=== PATIENT | female | born 1965 | race Caucasian/White ===

== ENCOUNTER 2018-06-24 08:57 | Outpatient (CLI) | payer OTHER ==
--- NOTE | 2018-06-24 11:04 | RAD ---
THREE VIEWS LEFT ANKLE: Date: 06-24-18 History: Left foot pain after walking 15 miles per day for several days. FINDINGS: There is an anchor screw overlying the cuboid bone. There is irregularity involving the base of the l eft fifth metatarsal related to prior injury. There is slight irregularity involving the plantar aspe ct of the posterior process of the talus. This may be developmental in origin. There is no acute frac ture seen. The ankle mortise is congruent. No dislocation is identified. IMPRESSION: No acute osseous abnormality of the left ankle. POS: [facility]
--- NOTE | 2018-06-24 11:09 | RAD ---
LEFT FOOT THREE VIEWS: INDICATIONS: Left foot pain with walking. COMPARISON: None. FINDINGS: Lisfranc alignment is preserved. There is a suture anchor within the lateral aspect of the cuboid, w hich may be related to prior tenodesis. No definite acute fracture is evident. Enthesopathic change is seen off the calcaneus and the base of the fifth metatarsal. There is mild scattered osteoarthro sis. IMPRESSION: No acute osseous abnormality. POS: [facility]
== END 2018-06-24 08:58 | disposition home or self-care (01) ==
LOC: SCSRAD 08:57
PROVIDERS: ATTEND Family Medicine
DX: M79.672 Pain in left foot (principal)

== ENCOUNTER 2019-04-26 11:42 | Outpatient (CLI) | payer OTHER ==
--- NOTE | 2019-04-26 13:47 | MMO ---
Bilateral MAMMO Bilat Screen [facility]. CLINICAL HISTORY: Patient is 53 years old and is seen for screening. The patient has the following family history of breast cancer: aunt, malignant (generic). The patient has no personal history of cancer. VIEWS: The views performed were: bilateral craniocaudal and bilateral mediolateral oblique. FILMS COMPARED: The present examination has been compared to prior imaging studies performed at [facility] on 06/14/2015 and 05/10/2017. This study has been interpreted with the assistance of computer-aided detection. MAMMOGRAM FINDINGS: There are scattered fibroglandular densities. There are no suspicious masses, suspicious calcifications, or new areas of architectural distortion. IMPRESSION: THERE IS NO MAMMOGRAPHIC EVIDENCE OF MALIGNANCY. A ROUTINE FOLLOW-UP MAMMOGRAM IN 1 YEAR IS RECOMMENDED. ACR BI-RADS Category 1 - Negative MAMMOGRAPHY NOTE: 1. A negative mammogram report should not delay a biopsy if a dominant of clinically suspicious mass is present. 2. Approximately 10% to 15% of breast cancers are not detected by mammography. 3. Adenosis and dense breasts may obscure an underlying neoplasm.
== END 2019-04-26 11:43 | disposition home or self-care (01) ==
LOC: SCSMAMMO 11:42
PROVIDERS: ATTEND Family Medicine
DX: Z12.31 Encounter for screening mammogram for malignant neoplasm of breast (principal); Z80.3 Family history of malignant neoplasm of breast
CPT/HCPCS: 77067

== ENCOUNTER 2023-07-28 09:01 | Outpatient (CLI) | payer BC | END 2023-07-28 09:02 | disposition home or self-care (01) | LOC: LABBT 09:01 | PROVIDERS: ATTEND Orthopaedic Surgery | DX: Z01.818 Encounter for other preprocedural examination (principal); M17.11 Unilateral primary osteoarthritis, right knee | CPT/HCPCS: 71046; 93005; 93010 ==

== ENCOUNTER 2023-08-02 05:39 | Observation (INO) | payer BC ==
[2023-07-28 09:30] VITALS: BMI 28.8
[2023-07-28 10:25] LABS: #Basophils 0.1 10x3/uL (0.0-0.2); #Eosinphils 0.1 10x3/uL (0.0-0.5); #Monocytes 0.5 10x3/uL (0.0-1.1); #Neutrophils 3.7 10x3/uL (1.5-8.4); %Basophils 0.8 % (0.0-2.0); %Lymphocytes 28.9 % (18.0-47.0); %Monocytes 7.8 % (0.0-10.0); %Neutrophils 60.2 % (40.0-75.0); Hematocrit 38.8 % (34.9-44.5); Hemoglobin 12.9 g/dL (12.0-15.5); Mean Corpuscular HGB CONC 33.2 g/dL (32.0-36.0); Mean Corpuscular Hemoglobin 30.6 pg (27.0-33.0); Mean Corpuscular Volume 92.2 fl (81.6-98.3); Mean Platelet Volume 10.1 fl (7.4-10.4); Platelet Count 194 10x3/uL (150-450); RBC Distribution Width 12.7 % (11.5-14.5); Red Blood Cell (RBC) Count 4.21 10x6/uL (3.90-5.03); White Blood Cell (WBC) Count 6.1 10x3/uL (3.5-10.5)
[2023-07-28 10:39] LABS: Prothrombin Time 10.3 sec (9.5-12.1)
[2023-07-28 11:02] LABS: Anion Gap 12 mmol/L (10-20); BUN (Urea Nitrogen) 16 mg/dL (9.8-20.1); Calc. Creatinine Clearance 0 mL/min (70-130); Calcium 9.1 mg/dL (7.8-10.44); Carbon Dioxide 28 mmol/L (22-29); Chloride 105 mmol/L (98-107); Estimated GFR 77; Glucose 106 mg/dL (70-105); Sodium 141 mmol/L (136-145)
[2023-07-28 11:04] LABS: Bilirubin Neg (Negative); Blood, Urine Negative (Negative); Clarity Clear (Clear); Glucose, Urine (Dipstick) Normal (Negative); Ketone, Urine Negative (Negative); Leukocyte 25 (Negative); Nitrite Negative (Negative); Protein, Urine (Dipstick) Negative (Neg-Trace); Urobilinogen Normal mg/dL (Less than 2)
[2023-08-02] MEDS ORDERED: Vancomycin 1 GM/200 ML (FROZEN) BAG ONE (05:58)
[2023-08-02] MEDS ORDERED: Tranexamic Acid 1,000 MG/10 ML VIAL ONE ×2 (05:58→10:24)
[2023-08-02] MEDS ORDERED: Sodium Chloride 0.9% 100 ML ONE ×3 (05:58→14:09)
[2023-08-02] MEDS ORDERED: Bupivacaine PF 0.5% 30 ML VIAL ONE ×2 (06:21→07:13)
[2023-08-02] MEDS ORDERED: fentaNYL PF 100 MCG/2 ML SYRINGE ONE (06:24)
[2023-08-02] MEDS ORDERED: Midazolam HCl 2 mg/2 ml Vial ONE (06:24)
[2023-08-02] MEDS ORDERED: Scopolamine 1.5 mg/72 hour Patch ONE (06:49)
[2023-08-02] MEDS ORDERED: HYDROmorphone 2 MG/ML VIAL SLOW IVP PRN (06:49)
[2023-08-02] MEDS ORDERED: Promethazine HCl 25 MG/ML VIAL IM PRN ×3 (06:49→09:58)
[2023-08-02] MEDS ORDERED: Ondansetron HCl/PF 4 MG/2 ML Vial IVP PRN (06:49)
[2023-08-02] MEDS ORDERED: CEFAZOLIN 2 GM VIAL ONE ×2 (06:52→14:09)
[2023-08-02] MEDS ORDERED: Dexamethasone 20 MG/5 ML VIAL ONE (06:56)
[2023-08-02] MEDS ORDERED: Metoclopramide HCl 10 MG/2 ML VIAL ONE (06:56)
[2023-08-02] MEDS ORDERED: PROPOFOL 200 MG/20 ML VIAL ONE (06:56)
[2023-08-02] MEDS ORDERED: diphenhydrAMINE 50 MG/ML VIAL ONE (06:56)
[2023-08-02] MEDS ORDERED: PHENYLEPHRINE-NS 100 MCG/ML 10 ML SYRINGE ONE (06:56)
[2023-08-02] MEDS ORDERED: Lidocaine 1% PF 5 ML VIAL ONE (06:56)
[2023-08-02] MEDS ORDERED: Bupivacaine HCl 0.5%/Epinephrine 1:200,000/PF 30 ml Vial ONE (06:56)
[2023-08-02] MEDS ORDERED: Ondansetron PF 4 MG/2 ML Vial ONE (06:56)
[2023-08-02] MEDS ORDERED: ePHEDrine Sulfate 50 MG/10 ML VIAL ONE (06:56)
[2023-08-02] MEDS ORDERED: Lidocaine 1% (PF) 30 ML VIAL ONE (07:13)
[2023-08-02] MEDS ORDERED: fentaNYL 50 mcg/mL 1 mL Vial SLOW IVP PRN (07:28)
[2023-08-02] MEDS ORDERED: HYDROcodone/Acetaminophen 10/325 mg Tablet PO PRN ×2 (07:30)
[2023-08-02] MEDS ORDERED: Zolpidem Tartrate 5 MG TAB PO PRN ×3 (07:30→10:40)
[2023-08-02] MEDS ORDERED: Ondansetron PF 4 MG/2 ML Vial IVP PRN ×2 (07:30→09:58)
[2023-08-02] MEDS ORDERED: Ropivacaine 0.2% 550 ML 550 ML NERVE BLCK SCH (07:30)
[2023-08-02] MEDS ORDERED: traMADol HCl 50 MG TAB PO PRN (07:30)
[2023-08-02] MEDS ORDERED: Promethazine HCl 25 MG/ML VIAL ONE (09:24)
[2023-08-02] MEDS ORDERED: fentaNYL 50 mcg/mL 1 mL Vial ONE ×3 (09:27→10:32)
[2023-08-02] MEDS ORDERED: Acetaminophen 325 MG TAB PO PRN (09:58)
[2023-08-02] MEDS ORDERED: diphenhydrAMINE 25 MG CAP PO PRN (09:58)
[2023-08-02] MEDS ORDERED: Non-Formulary Item 1 EACH (Zolpidem Tartrate [Ambien] 10 MG Tablet) PO PRN (10:00)
[2023-08-02] MEDS ORDERED: Montelukast Sodium 10 mg Tablet PO PRN (10:00)
[2023-08-02] MEDS ORDERED: Tranexamic Acid 1,000 MG in Sodium Chloride 0.9% 100 ML IVPB SCH (10:00)
[2023-08-02] MEDS ORDERED: Ketorolac Tromethamine 30 MG/ML VIAL ONE (10:41)
[2023-08-02] MEDS: Ketorolac Tromethamine 30 MG/ML VIAL IVP SCH ×2 (10:43→18:18)
[2023-08-02] MEDS: CEFAZOLIN 2 GM in Sodium Chloride 0.9% 100 ML IVPB SCH ×2 (14:13→22:22)
[2023-08-02] MEDS ORDERED: HYDROcodone/Acetaminophen 10/325 mg Tablet ONE (15:32)
[2023-08-02] MEDS: Sodium Chloride 0.9% 1,000 ML IV SCH ×2 (17:14→21:32)
[2023-08-02] MEDS ORDERED: Vancomycin HCl 1.5 GM in Sodium Chloride 0.9% 250 ML 300 ML IVPB SCH (18:00)
[2023-08-02] MEDS ORDERED: Vancomycin 1.5 GRAM/300 ML BAG 1.5 GM in Premix Bag 1 BAG IVPB SCH (18:15)
[2023-08-02] MEDS: traMADol HCl 50 MG TAB PO PRN (19:41)
[2023-08-02] MEDS: Aspirin 81 mg Enteric Coated Tablet PO SCH (19:42)
[2023-08-02] MEDS: Gabapentin 300 MG CAP PO SCH (19:43)
[2023-08-02] MEDS: Ferrous Gluconate 324 MG TAB PO SCH (19:43)
[2023-08-02] MEDS: Senokot S 8.6-50 MG TAB PO SCH (19:43)
[2023-08-02] MEDS ORDERED: Gabapentin 300 MG CAP PO SCH (21:00)
[2023-08-03] MEDS: Ketorolac Tromethamine 30 MG/ML VIAL IVP SCH ×3 (00:02→11:50)
[2023-08-03] MEDS: traMADol HCl 50 MG TAB PO PRN (05:16)
[2023-08-03 05:39] LABS: Hematocrit 31.3 % (36.0-47.0); Hemoglobin 10.4 g/dL (12.0-16.0); Mean Corpuscular HGB CONC 33.2 g/dL (32.0-36.0); Mean Corpuscular Hemoglobin 31.1 pg (27.0-31.0); Mean Corpuscular Volume 93.7 fl (78.0-98.0); Mean Platelet Volume 10.6 fL (7.4-10.4); Platelet Count 144 10x3/uL (130-400); RBC Distribution Width 12.7 % (11.5-14.5); Red Blood Cell (RBC) Count 3.34 mill/uL (4.20-5.40); White Blood Cell (WBC) Count 12.6 10x3/uL (4.8-10.8)
[2023-08-03] MEDS: Sodium Chloride 0.9% 1,000 ML IV SCH (06:05)
[2023-08-03] MEDS: Aspirin 81 mg Enteric Coated Tablet PO SCH (08:43)
[2023-08-03] MEDS: Gabapentin 300 MG CAP PO SCH (08:44)
[2023-08-03] MEDS: Ferrous Gluconate 324 MG TAB PO SCH (08:45)
[2023-08-03] MEDS: Senokot S 8.6-50 MG TAB PO SCH (08:45)
[2023-08-03] MEDS ORDERED: PSYLLIUM HUSK 0.52 GM PO SCH (09:00)
[2023-08-03] MEDS ORDERED: Magnesium Oxide 250 MG TAB PO SCH (09:00)
[2023-08-03] MEDS ORDERED: BuPROPion XL 150 MG ER.TAB PO SCH (09:00)
[2023-08-03] MEDS ORDERED: Multivitamin W/ Minerals 1 TAB PO SCH (09:00)
[2023-08-03] MEDS ORDERED: Non-Formulary Item 1 EACH (Magnesium [Magnesium] 250 MG Tablet) PO SCH (09:00)
[2023-08-03] MEDS ORDERED: Metamucil PACK PO SCH (09:00)
[2023-08-03] MEDS ORDERED: Rosuvastatin 10 MG TAB PO SCH (09:00)
[2023-08-03] MEDS ORDERED: Potassium Chloride 10 MEQ TAB PO SCH (09:00)
[2023-08-03] MEDS ORDERED: Non-Formulary Item 1 EACH (Potassium Citrate [Potassium] 99 MG Capsule) PO SCH (09:00)
[2023-08-03] MEDS ORDERED: Non-Formulary Item 1 EACH (Multivit-Min/Iron/Folic/Lutein [Centrum Silver Women] 1 TABLET PO SCH (09:00)
[2023-08-03 14:02] VITALS: BP 111/58; TEMP 97.7
== END 2023-08-03 14:40 | disposition home or self-care (01) ==
LOC: SDC 05:39 → SJJU 09:58
PROVIDERS: ADMIT Orthopaedic Surgery; ATTEND Orthopaedic Surgery
PROC: 0SRC0JZ Replacement of Right Knee Joint with Synthetic Substitute, Open Approach (ICD-10-PCS; principal; 2023-08-02)
DX: M17.31 Unilateral post-traumatic osteoarthritis, right knee (principal); G47.33 Obstructive sleep apnea (adult) (pediatric); F32.A Depression, unspecified; K21.9 Gastro-esophageal reflux disease without esophagitis; Z79.899 Other long term (current) drug therapy; Z86.16 Personal history of COVID-19; Z88.9 Allergy status to unspecified drugs, medicaments and biological substances
CPT/HCPCS: 36415; 80048; 81003; 85025; 85027; 85610; 86850; 86900; 86901; 87081; A4306; C1776; J1100; J1200; J1885; J2001; J2250; J2405; J2550; J2704; J2765; J2795; J3010; J3370; J3370-JW; J3490; S0020